=== PATIENT | female | born 1955 | race Caucasian/White ===

== ENCOUNTER → 2017-03-25 | Outpatient (CLI) | payer OTHER ==
[~2017-03-25] MED LIST: ACET-1600 PO; ASCO100019 PO; BUPR100T11 PO; CITA40TA12 PO; CLON2TAB2 PO; FLUO40CA9 PO; HYDR-3237 PO; HYDR2TAB29 PO; LORA10TA75 PO; MAGN100T6 PO; METH750T2 PO; METH750T87 PO; TRAM50TA2 PO
== END | disposition home or self-care (01) ==
LOC: CFH 15:10
PROVIDERS: ATTEND Neurological Surgery
DX: M48.07 Spinal stenosis, lumbosacral region (principal); M48.06 Spinal stenosis, lumbar region; M51.16 Intervertebral disc disorders with radiculopathy, lumbar region
CPT/HCPCS: 72110; 72148